=== PATIENT | male | born 1980 | race Two or more races ===

== ENCOUNTER 2018-10-14 09:36 | Emergency (ER) | payer SELFPAY ==
[2018-10-14] MEDS ORDERED: NS 1,000 ML IV ONE (09:47)
[2018-10-14] MEDS ORDERED: ONDANSETRON 4 MG/2 ML VIAL IVP ONE (09:47)
--- NOTE | 2018-10-14 09:48 | EDPHY ---
H & P Stated Complaint: RUQ abd pain Time Seen by Provider: 10/14/18 09:45 HPI/ROS: HPI: This is a 38-year-old male who presents with Chief Complaint: Right flank, right upper quadrant pain Location: Right flank, right upper quadrant Quality: Pain Duration: Starting around 3:00 a.m. Approximately 6 hr Signs and Symptoms: no fever, + nausea, no vomiting, no hematemesis, no blood in stool, no abdominal bloating, no diarrhea, no back pain, no urinary symptoms , no testicular/groin pain, no indigestion, no chest pain, no shortness of breath Timing: Acute, constant Severity: 03/15 Context: Patient was woken up this morning around 3:00 a.m. With complaints of sudden onset of right flank and right upper quadrant pain that is nonradiating in nature. Reports that is constant, severe and accompanied by nausea. He has a history of diverticulosis and hemorrhoids. Drinks alcohol socially. Denies any GERD, indigestion, early satiety, abdominal bloating, fever. Patient reports that he had a bowel movement this morning and it did not improved the pain. Has only drank water today. Modifying Factors: None Comment: ROS: A comprehensive 10 system review of systems is otherwise negative aside from elements mentioned in the history of present illness. MEDICAL/SURGICAL/SOCIAL HISTORY: Medical history: Hypertension, diverticulosis, hemorrhoids Surgical history: Denies Social history: Tobacco and marijuana user. Drinks alcohol. Family history noncontributory. CONSTITUTIONAL: middle-aged male, polite and cooperative, nontoxic in appearance, holding right upper quadrant and flank, awake and alert, moderate distress HEENT: Atraumatic and normocephalic, PERRL, EOMI. Nares patent; no rhinorrhea; no nasal mucosal edema. Tympanic membranes clear. Oropharynx clear, no exudate and moist pink mucosa. Airway patent. No lymphadenopathy. No meningismus. Cardiovascular: Normal S1/S2, regular rate, regular rhythm, without murmur rub or gallop. PULMONARY/CHEST: Symmetrical and nontender. Clear to auscultation bilaterally. Good air movement. No accessory muscle usage. ABDOMEN: Soft, protuberant, nondistended, moderate right flank and right upper quadrant tenderness, no rebound, + guarding, no peritoneal signs, no masses or organomegaly. No CVAT. EXTREMITIES: 2/2 pulses, strength 5/5, no deformities, no clubbing, no cyanosis or edema. NEUROLOGICAL: no focal neuro deficits. GCS 15. SKIN: Warm and dry, multiple tattoos, no erythema. no rash. Good capillary refill. Source: Patient Exam Limitations: No limitations - Personal History Current Tetanus/Diphtheria Vaccine: No Current Tetanus Diphtheria and Acellular Pertussis (TDAP): No Tetanus Vaccine Date: more than 10 years - Medical/Surgical History Hx Asthma: No Hx Chronic Respiratory Disease: No Hx Diabetes: No Hx Cardiac Disease: No Hx Renal Disease: No Hx Cirrhosis: No Hx Alcoholism: No Hx HIV/AIDS: No Hx Splenectomy or Spleen Trauma: No Other PMH: HTN, diverticulosis, hemorrhoids - Social History Smoking Status: Current every day smoker Constitutional: Initial Vital Signs Temperature (C) 36.6 C 10/14/18 09:42 Heart Rate 73 10/14/18 09:42 Respiratory Rate 18 10/14/18 09:42 Blood Pressure 196/108 H 10/14/18 09:42 O2 Sat (%) 98 10/14/18 09:42 O2 Delivery Mode Room Air Allergies/Adverse Reactions: ibuprofen [Ibuprofen] Allergy (Severe, Verified 10/14/18 09:41) SWELLING Medical Decision Making ED Course/Re-evaluation: Vital signs reviewed and show elevated blood pressure likely secondary to pain. IV access, laboratory studies, urinalysis, CT abdomen and pelvis scan ordered Patient has both right flank and right upper quadrant pain differentials include nephrolithiasis, ureterolithiasis, gallbladder disease. Due to body habitus as well as multiple etiology; CT abdomen and pelvis scan with contrast ordered Patient given 1 L normal saline, IV morphine 6 mg, IV Zofran 4 mg 1030: Labs reviewed. No signs of anemia/platelet dysfunction/KEVIN/elevated LFTs /electrolyte imbalance/pancreatitis. WBC 10 K with left shift, creatinine 0.9, potassium 4.2 1130: Called by Radiology who advised that CT abdomen and pelvis scan shows diverticulosis but no diverticulitis, hemorrhage no signs of obstruction, appendicitis, gallbladder disease, pancreatitis, liver disease, nephrolithiasis , pyelonephritis, ureterolithiasis, obstruction. + moderate constipation Urinalysis is unremarkable. Long discussion with patient who reports that he wants to start taking MiraLax daily and changes eating regimen. I feel this is reasonable. Blood Pressure stable at discharge. This patient was seen under the supervision of my secondary supervising physician. I evaluated care for this patient independently. Differential Diagnosis: Abdominal pain including but not limited to appendicitis, cholecystitis, gastritis and urinary tract infection. - Data Points Laboratory Results: Laboratory Results 10/14/18 09:50 10/14/18 09:50 10/14/18 10/14/18 10/14/18 11:10 09:50 09:50 WBC 9.78 10^3/uL H 10^3/uL (3.80-9.50) RBC 4.86 10^6/uL 10^6/uL (4.40-6.38) Hgb 15.5 g/dL g/dL (13.7-17.5) Hct 46.0 % % (40.0-51.0) MCV 94.7 fL fL (81.5-99.8) MCH 31.9 pg pg (27.9-34.1) MCHC 33.7 g/dL g/dL (32.4-36.7) RDW 13.0 % % (11.5-15.2) Plt Count 321 10^3/uL 10^3/uL (150-400) MPV 8.8 fL fL (8.7-11.7) Neut % (Auto) 80.9 % H % (39.3-74.2) Lymph % (Auto) 12.8 % L % (15.0-45.0) [place] % (Auto) 5.3 % % (4.5-13.0) Eos % (Auto) 0.2 % L % (0.6-7.6) Baso % (Auto) 0.2 % L % (0.3-1.7) Nucleat RBC Rel Count 0.0 % % (0.0-0.2) Absolute Neuts (auto) 7.91 10^3/uL H 10^3/uL (1.70-6.50) Absolute Lymphs (auto) 1.25 10^3/uL 10^3/uL (1.00-3.00) Absolute Monos (auto) 0.52 10^3/uL 10^3/uL (0.30-0.80) Absolute Eos (auto) 0.02 10^3/uL L 10^3/uL (0.03-0.40) Absolute Basos (auto) 0.02 10^3/uL 10^3/uL (0.02-0.10) Absolute Nucleated RBC 0.00 10^3/uL 10^3/uL (0-0.01) Immature Gran % 0.6 % % (0.0-1.1) Immature Gran # 0.06 10^3/uL 10^3/uL (0.00-0.10) Sodium 137 mEq/L mEq/L (135-145) Potassium 4.2 mEq/L mEq/L (3.5-5.2) Chloride 103 mEq/L mEq/L (97-110) Carbon Dioxide 25 mEq/l mEq/l (22-31) Anion Gap 9 mEq/L mEq/L (6-14) BUN 15 mg/dL mg/dL (7-23) Creatinine 0.9 mg/dL mg/dL (0.7-1.3) Estimated GFR > 60 Glucose 120 mg/dL H mg/dL (70-100) Calcium 9.2 mg/dL mg/dL (8.5-10.4) Total Bilirubin 0.4 mg/dL mg/dL (0.1-1.4) Conjugated Bilirubin 0.4 mg/dL mg/dL (0.0-0.5) Unconjugated Bilirubin 0.0 mg/dL mg/dL (0.0-1.1) AST 25 IU/L IU/L (17-59) ALT 19 IU/L L IU/L (21-72) Alkaline Phosphatase 87 IU/L IU/L (38-126) Total Protein 7.8 g/dL g/dL (6.3-8.2) Albumin 4.7 g/dL g/dL (3.5-5.0) Lipase 31 IU/L IU/L (23-300) Urine Color COLORLESS Urine Appearance CLEAR Urine pH 6.0 (5.0-7.5) Ur Specific [place] 1.011 (1.002-1.030) Urine Protein NEGATIVE (NEGATIVE) Urine Ketones NEGATIVE (NEGATIVE) Urine Blood NEGATIVE (NEGATIVE) Urine Nitrate NEGATIVE (NEGATIVE) Urine Bilirubin NEGATIVE (NEGATIVE) Urine Urobilinogen NEGATIVE EU EU (0.2-1.0) Ur Leukocyte Esterase NEGATIVE (NEGATIVE) Urine Glucose NEGATIVE (NEGATIVE) Medications Given: Discontinued Medications Sodium Chloride (Ns) 1,000 mls @ 0 mls/hr IV EDNOW ONE; Wide Open PRN Reason: Protocol Stop: 10/14/18 09:48 Last Admin: 10/14/18 10:04 Dose: 1,000 mls Morphine Sulfate (Morphine) 6 mg IVP EDNOW ONE Stop: 10/14/18 09:48 Last Admin: 10/14/18 10:05 Dose: 6 mg Ondansetron HCl (Zofran) 4 mg IVP EDNOW ONE Stop: 10/14/18 09:48 Last Admin: 10/14/18 10:05 Dose: 4 mg Departure - Departure Disposition: Home, Routine, Self-Care Clinical Impression: Constipation by delayed colonic transit, Diverticulosis of colon without diverticulitis Hypertension Qualifiers: Hypertension type: essential hypertension Qualified Code(s): I10 - Essential ( primary) hypertension Condition: Good Instructions: Constipation (ED), Diverticulosis (ED), Diverticulitis Diet (ED) , Hypertension (ED) Additional Instructions: Consume a minimum of 8-10 glasses of water or electrolyte fluid replacement drinks that include Gatorade, Powerade, Pedialyte. Eat a bland diet for the next 48 hours and then slowly advance as tolerated. Take MiraLax daily. Take [id number] simethicone or Gas-X as needed for abdominal gas pain. Referrals: [facility],. [Primary Care Provider] - As per Instructions
[2018-10-14 10:02] LABS: PLATELET COUNT 321 10^3/uL (150-400)
[2018-10-14] MEDS ORDERED: IOPAMIDOL (ISOVUE-300) 100 ML BTL ONE (10:41)
[2018-10-14 11:37] VITALS: BP 167/97
== END 2018-10-14 11:44 | disposition home or self-care (01) ==
DX: K59.01 Slow transit constipation (principal); K57.90 Diverticulosis of intestine, part unspecified, without perforation or abscess without bleeding; I10 Essential (primary) hypertension; E86.9 Volume depletion, unspecified
CPT/HCPCS: 96374; J2270; J2405; Q9967

== ENCOUNTER 2018-10-18 11:06 | Emergency (ER) | payer SELFPAY ==
--- NOTE | 2018-10-18 11:14 | EDPHY ---
H & P Time Seen by Provider: 10/18/18 11:12 HPI/ROS: CHIEF COMPLAINT: Abdominal pain and vomiting HISTORY OF PRESENT ILLNESS: Patient was in our emergency department 10/14/2018 with right-sided abdominal and flank pain and had CT scan which showed constipation otherwise negative for any acute process. He was noted to been admitted to our hospital in November of 2010 with what he says were similar symptoms, [facility] with [facility]osis but no other procedure performed at that time, no other diagnosis. Since the 14 of October he said he has had worsening right-sided pain. Right upper quadrant of his abdomen, worse with oral intake. Associated with nausea and vomiting and feeling weaker. He took MiraLax and large bowel movement but since then no constipation or diarrhea. Denies urinary symptoms or fever. Says today's symptoms are severe. Identical to 4 days ago in character quality and location but worse in severity. REVIEW OF SYSTEMS: Eye: no change in vision ENT: no sore throat Cardiac: no chest pain or syncope Pulmonary: no cough or SOB Abdomen: HPI Musculoskeletal: no back pain Skin: no rash Neuro: no headache Constitutional: no fever : no urinary symptoms A comprehensive 10 point review of systems is otherwise negative aside from elements mentioned in the history of present illness. PAST MEDICAL HISTORY: Includes hypertension, diverticulosis, hemorrhoids Social history: Occasional alcohol, occasional marijuana, nonsmoker General Appearance: Alert and conversant, cooperative. Eyes: No scleral icterus. ENT, Mouth: Dry mucous membranes. Respiratory: Normal respiratory effort, breath sounds equal, lungs are clear to auscultation. Cardiovascular: Regular rate and rhythm. Gastrointestinal: Mild right upper quadrant tenderness without rebound or guarding or Patterson sign. Neurological: Alert, face symmetric, normal motor and sensory in extremities. Skin: Warm and dry, no rashes. Musculoskeletal: No peripheral edema. Psychiatric: Not agitated. Emergency Department course/MDM: Normal saline 1 L IV, Zofran 4 mg IV, labs to include LFT and lipase. Examination does not suggest acute surgical process. No rebound or guarding. Differential considered including but not limited to gastroenteritis, bowel obstruction, gallbladder disease, hepatitis, appendicitis. Germán 1238; admit to Dr. Looney, still symptomatic after Zofran Phenergan Haldol and Benadryl. Discussed with the patient at this time; WBC 12.3, hematocrit 46. 1320: Now the patient says because of insurance reasons he does not want to be admitted wants to go home. He is aware that I am recommending he be admitted for further evaluation, but he wants to leave. He clearly has capacity to make decisions regarding his care. He is encouraged to return if he changes his mind. Smoking Status: Current some day smoker Constitutional: Initial Vital Signs Temperature (C) 36.5 C 10/18/18 11:09 Heart Rate 64 10/18/18 11:09 Respiratory Rate 18 10/18/18 11:09 Blood Pressure 162/119 H 10/18/18 11:09 O2 Sat (%) 96 10/18/18 11:09 O2 Delivery Mode Room Air Allergies/Adverse Reactions: ibuprofen [Ibuprofen] Allergy (Severe, Verified 10/18/18 11:12) SWELLING Home Medications: Medication Instructions Recorded Promethazine HCl [Phenergan 25mg 25 mg PO Q6-8PRN PRN #6 tab 10/18/18 (RX)] Medical Decision Making - Data Points Laboratory Results: Laboratory Results 10/18/18 11:26 10/18/18 10/18/18 11:26 11:26 WBC Pending RBC Pending Hgb Pending Hct Pending MCV Pending MCH Pending MCHC Pending RDW Pending Plt Count Pending MPV Pending Neut % (Auto) Pending Lymph % (Auto) Pending [place] % (Auto) Pending Eos % (Auto) Pending Baso % (Auto) Pending Nucleat RBC Rel Count Pending Absolute Neuts (auto) Pending Absolute Lymphs (auto) Pending Absolute Monos (auto) Pending Absolute Eos (auto) Pending Absolute Basos (auto) Pending Absolute Nucleated RBC Pending Immature Gran % Pending Immature Gran # Pending Sodium 137 mEq/L mEq/L (135-145) Potassium 4.0 mEq/L mEq/L (3.5-5.2) Chloride 101 mEq/L mEq/L (97-110) Carbon Dioxide 24 mEq/l mEq/l (22-31) Anion Gap 12 mEq/L mEq/L (6-14) BUN 16 mg/dL mg/dL (7-23) Creatinine 1.0 mg/dL mg/dL (0.7-1.3) Estimated GFR > 60 Glucose 117 mg/dL H mg/dL (70-100) Calcium 9.9 mg/dL mg/dL (8.5-10.4) Total Bilirubin 0.7 mg/dL mg/dL (0.1-1.4) Conjugated Bilirubin 0.0 mg/dL mg/dL (0.0-0.5) Unconjugated Bilirubin 0.3 mg/dL mg/dL (0.0-1.1) AST 21 IU/L IU/L (17-59) ALT 22 IU/L IU/L (21-72) Alkaline Phosphatase 76 IU/L IU/L (38-126) Total Protein 7.8 g/dL g/dL (6.3-8.2) Albumin 4.7 g/dL g/dL (3.5-5.0) Lipase 21 IU/L L IU/L (23-300) Medications Given: Discontinued Medications Diphenhydramine HCl (Benadryl) 50 mg PO EDNOW ONE Stop: 10/18/18 12:19 Last Admin: 10/18/18 12:30 Dose: Not Given Diphenhydramine HCl (Benadryl Injection) 25 mg IVP EDNOW ONE Stop: 10/18/18 12:24 Last Admin: 10/18/18 12:23 Dose: 25 mg Haloperidol Lactate (Haldol Injection) 2.5 mg IVP EDNOW ONE Stop: 10/18/18 12:18 Last Admin: 10/18/18 12:22 Dose: 2.5 mg Sodium Chloride (Ns) 1,000 mls @ 0 mls/hr IV EDNOW ONE; Wide Open PRN Reason: Protocol Stop: 10/18/18 11:23 Last Admin: 10/18/18 11:30 Dose: 1,000 mls Ondansetron HCl (Zofran) 4 mg IVP EDNOW ONE Stop: 10/18/18 11:23 Last Admin: 10/18/18 11:34 Dose: 4 mg Pantoprazole Sodium (Protonix) 40 mg IVP EDNOW ONE Stop: 10/18/18 11:23 Last Admin: 10/18/18 11:35 Dose: 40 mg Promethazine HCl (Phenergan) 6.25 mg IVP ONCE ONE Stop: 10/18/18 12:11 Last Admin: 10/18/18 12:14 Dose: 6.25 mg Departure - Departure Disposition: Against Medical Advice Clinical Impression: Nausea & vomiting Qualifiers: Vomiting type: unspecified Vomiting Intractability: intractable Qualified Code( s): R11.2 - Nausea with vomiting, unspecified Abdominal pain Qualifiers: Abdominal location: right upper quadrant Qualified Code(s): R10.11 - Right upper quadrant pain Condition: Good
[2018-10-18] MEDS ORDERED: NS 1,000 ML IV ONE (11:22)
[2018-10-18] MEDS ORDERED: PANTOPRAZOLE SODIUM 40 MG VIAL IVP ONE (11:22)
[2018-10-18] MEDS ORDERED: ONDANSETRON 4 MG/2 ML VIAL IVP ONE (11:22)
[2018-10-18] MEDS ORDERED: PROMETHAZINE HCL 25 MG/ML INJ IVP ONE (12:10)
[2018-10-18] MEDS ORDERED: HALOPERIDOL LACT 5 MG/ML INJ IVP ONE (12:17)
[2018-10-18] MEDS ORDERED: diphenhydrAMINE 25 MG CAP PO ONE (12:18)
[2018-10-18] MEDS ORDERED: ONDANSETRON DISINTEGRATING 4 MG TAB PO PRN (13:16)
[2018-10-18] MEDS ORDERED: ZOLPIDEM TARTRATE 5 MG TAB PO PRN (13:16)
[2018-10-18] MEDS ORDERED: PROMETHAZINE HCL 25 MG/ML INJ IVP PRN (13:16)
[2018-10-18] MEDS ORDERED: ONDANSETRON 4 MG/2 ML VIAL IVP PRN (13:16)
[2018-10-18] MEDS ORDERED: ACETAMINOPHEN 325 MG TAB PO PRN (13:16)
--- NOTE | 2018-10-18 13:21 | PDGENHP ---
History and Physical - Chief Complaint he left from the emergency dept AMA prior to me seeing him. - History of Present Illness History Information - Allergies/Home Medication List Allergies/Adverse Reactions: ibuprofen [Ibuprofen] Allergy (Severe, Verified 10/18/18 11:12) SWELLING I have personally reviewed and updated: medical history (N/A pt not seen) - Social History Smoking Status: Current some day smoker Review of Systems Review of Systems: Physical Exam Physical Exam: Temp Pulse Resp BP Pulse Ox 97.7 F 51 L 15 122/69 H 93 10/18/18 11:09 10/18/18 12:00 10/18/18 12:00 10/18/18 12:00 10/18/18 12:00 Lab Data & Imaging Review 10/18/18 11:26 10/18/18 11:26 Sodium 137 mEq/L (135-145) 10/18/18 11:26 Potassium 4.0 mEq/L (3.5-5.2) 10/18/18 11:26 Chloride 101 mEq/L (97-110) 10/18/18 11:26 Carbon Dioxide 24 mEq/l (22-31) 10/18/18 11:26 Anion Gap 12 mEq/L (6-14) 10/18/18 11:26 BUN 16 mg/dL (7-23) 10/18/18 11:26 Creatinine 1.0 mg/dL (0.7-1.3) 10/18/18 11:26 Estimated GFR > 60 10/18/18 11:26 Glucose 117 mg/dL (70-100) H 10/18/18 11:26 Calcium 9.9 mg/dL (8.5-10.4) 10/18/18 11:26 Total Bilirubin 0.7 mg/dL (0.1-1.4) 10/18/18 11:26 Conjugated Bilirubin 0.0 mg/dL (0.0-0.5) 10/18/18 11:26 Unconjugated Bilirubin 0.3 mg/dL (0.0-1.1) 10/18/18 11:26 AST 21 IU/L (17-59) 10/18/18 11:26 ALT 22 IU/L (21-72) 10/18/18 11:26 Alkaline Phosphatase 76 IU/L (38-126) 10/18/18 11:26 Total Protein 7.8 g/dL (6.3-8.2) 10/18/18 11:26 Albumin 4.7 g/dL (3.5-5.0) 10/18/18 11:26 Lipase 21 IU/L (23-300) L 10/18/18 11:26 Assessment & Plan Assessment: Abdominal pain (Acute) Nausea & vomiting (Acute)
[2018-10-18] MEDS ORDERED: NS W/ 20 KCl/L 1,000 ML IV SCH (13:30)
[2018-10-18 13:42] VITALS: BP 152/80
[2018-10-18 14:27] LABS: PLATELET COUNT 332 10^3/uL (150-400)
== END 2018-10-18 13:41 | disposition left against medical advice (07) ==
LOC: UNDOADMOB 12:39
DX: R10.11 Right upper quadrant pain (principal); R11.2 Nausea with vomiting, unspecified; I10 Essential (primary) hypertension
CPT/HCPCS: 96374; J1200; J1630; J2405; J2550